=== PATIENT | female | born 1985 | race Caucasian/White ===

== ENCOUNTER 2016-08-29 20:38 | Emergency (ER) | payer BC, OTHER ==
[~2016-08-29] VITALS: Ht 157.5 cm; Wt 53.0 kg
[2016-08-29 20:38] VITALS: TEMP 36.8; Ht 157.5 cm; Wt 53.0 kg
[~2016-08-29 20:38] MED LIST: PRENTAB26 PO
[2016-08-29] MEDS ORDERED: IBUPROFEN 600 MG TAB PO STA (20:51)
--- NOTE | 2016-08-29 21:18 | DIAGNOSTIC IMAGING REPORT ---
RIGHT ANKLE 3 VIEWS CLINICAL HISTORY: Right ankle twisting injury. FINDINGS: 3 views of the right ankle are compared to study dated 11/25/2007. The skeletal structures are well mineralized. No fracture is seen. The ankle mortise is intact. There is a small joint effusion. Mild soft tissue swelling is present around the ankle. IMPRESSION: Mild soft tissue swelling and small joint effusion. No right ankle fracture is seen. Electronically signed by: Ez Vega M.D. 08/29/2016 9:17 PM Dictated Date/Time: 08/29/2016 9:16 PM
--- NOTE | 2016-08-29 21:35 | EMERGENCY ROOM VISIT NOTE ---
ED Visit Note First contact with patient: 20:41 CHIEF COMPLAINT: Right ankle injury yesterday HISTORY OF PRESENT ILLNESS: Patient is a 31-year-old white female who presents the emergency department accompanied by her sister for evaluation of right ankle pain. She tripped yesterday and the right ankle gave out, but she did not notice much discomfort until today when the pain became progressively worse. She notes swelling. She did not take any medications, nor perform any intervention for her symptoms. She rates her pain a 7/10 presently. She reports a remote history of a right ankle fracture that was treated with an Aircast. REVIEW OF SYSTEMS: Review of systems as per HPI. All other systems reviewed were negative. At least 6 systems reviewed. PMH: Electronic medical records are reviewed and summarized as above/below. See Problem List. SOCIAL HISTORY: Patient lives at home with her and children. She is employed. PHYSICAL EXAM: Vital Signs: Reviewed Nurse's notes. MENTAL STATUS: Alert, oriented, and cooperative. The right ankle is swollen and tender over the dorsolateral aspect but the skin is intact and there is no ligamentous instability. No pain over the 5th metatarsal or fibular head. Lisfranc joint is negative. There is no deformity. The foot and toes are warm and well- perfused. Sensation to pain and light touch is intact. EMERGENCY DEPARTMENT COURSE: Ice was applied and patient was medicated with ibuprofen. X-ray reveals no fracture, only the soft tissue swelling. A compression sleeve and gel splint were applied to the ankle under my direction and the position was satisfactory. Crutches were issued and patient was instructed on a non weight bearing gait. Differential diagnosis include foot verses ankle sprain/fracture, contusion, dislocation. RIGHT ANKLE 3 VIEWS CLINICAL HISTORY: Right ankle twisting injury. FINDINGS: 3 views of the right ankle are compared to study dated 11/25/2007. The skeletal structures are well mineralized. No fracture is seen. The ankle mortise is intact. There is a small joint effusion. Mild soft tissue swelling is present around the ankle. IMPRESSION: Mild soft tissue swelling and small joint effusion. No right ankle fracture is seen. Problem List Medical Problems: (1) Active labor Status: Resolved (2) Left ovarian cyst Status: Resolved (3) Migraine variant with headache Status: Resolved (4) Status: Resolved Current/Historical Medications No Active Prescriptions or Reported Meds Allergies Coded Allergies: No Known Allergies (Verified , 01/15/16) Vital Signs Date Time Temp Pulse Resp B/P Pulse Ox O2 Delivery O2 Flow Rate FiO2 08/29/16 20:38 36.8 65 18 125/81 98 Room Air Departure Information Impression Primary Impression: Right ankle sprain Prescriptions No Active Prescriptions or Reported Meds Referrals Mala Arboleda D.O. (PCP) Patient Instructions [facility] Additional Instructions Ibuprofen(Motrin, Advil) may be used for fever or pain. Use 600mg every six hours as needed. Take with food. Avoid using more than 2400mg in a 24 hour period. Do not use 2400mg per day for more than three consecutive days without physician direction. Prolonged inappropriate use can lead to stomach upset or ulcers. This medication can be taken if you need to drive, work, or perform activities which may be dangerous when taking narcotic pain medication. (AND/OR) Acetaminophen(Tylenol) may be used for fever or pain. Use 1000mg every six hours as needed. Avoid using more than 3000mg in a 24 hour period. This medication can be taken if you need to drive, work, or perform activities which may be dangerous when taking narcotic pain medication. Ice compresses for 20 minutes at a time four times daily for 2-3 days. Use the gel splint and crutches as instructed. Rest and elevate your injury. Continue current medications. Return to the ER immediately for any numbness, tingling, severe pain, extreme swelling in the extremity or as needed. Followup with your family doctor or orthopedic surgery if no improvement in 5-7 days.
[2016-08-29 21:55] VITALS: BP 122/83; PULSE 66; O2SAT 99
== END 2016-08-29 21:57 | disposition home or self-care (01) ==
LOC: C.EDB 20:38 → C.EDD 21:57
DX: S93.401A Sprain of unspecified ligament of right ankle, initial encounter (principal); W18.40XA Slipping, tripping and stumbling without falling, unspecified, initial encounter

== ENCOUNTER → 2017-02-20 | Outpatient (CLI) | payer BC ==
[2017-02-20 10:11] LABS: BASO % 0.5 %; BASO ABS # 0.05 K/uL (0-0.2); COMPLETE YES; EOS % 1.7 %; HEMATOCRIT 41.8 % (37-47); IG% 0.2 %; LYMPH % 17.2 %; LYMPH ABS # 1.75 K/uL (1.2-3.4); MEAN CELL VOLUME 86.7 fL (80-100); MEAN CORPUSCULAR HEMOGLOBIN 30.5 pg (25-34); MEAN CORPUSCULAR HGB CONC 35.2 g/dl (32-36); MEAN PLATELET VOLUME 10.3 fL (7.4-10.4); MONO % 5.4 %; PLATELET COUNT 213 K/uL (130-400); RED BLOOD COUNT 4.82 M/uL (4.2-5.4); WHITE BLOOD COUNT 10.19 K/uL (4.8-10.8)
[2017-02-20 12:12] LABS: URINE APPEARANCE CLEAR (CLEAR); URINE BILIRUBIN NEG (NEG); URINE COLOR YELLOW; URINE NITRITE NEG (NEG); URINE SPECIFIC GRAVITY 1.017 (1.000-1.030); UROBILINOGEN NEG (NEG)
[2017-02-20 12:18] LABS: MANUAL MICROSCOPIC REQUIRED? NO; REVIEW REQ? NO
[2017-02-22 12:51] LABS: CHLAMYDIA TRACH RNA*** NOT DETECTED (NOT DETECTED); GC (NEIS GONORRHOEAE)RNA** NOT DETECTED (NOT DETECTED)
== END | disposition home or self-care (01) ==
LOC: C.LAB1850 09:20
PROVIDERS: ATTEND Obstetrics & Gynecology
DX: Z34.91 Encounter for supervision of normal pregnancy, unspecified, first trimester (principal); Z3A.00 Weeks of gestation of pregnancy not specified

== ENCOUNTER → 2017-04-11 | Outpatient (CLI) | payer BC | END | disposition home or self-care (01) | LOC: C.LAB1850 09:31 | PROVIDERS: ATTEND Obstetrics & Gynecology | DX: Z34.92 Encounter for supervision of normal pregnancy, unspecified, second trimester (principal) ==